=== PATIENT | male | born 1970 | race Caucasian/White ===

== ENCOUNTER 2021-08-14 22:41 | Emergency (ER) | payer OTHER ==
[2021-08-14 22:57] VITALS: BMI 32.1
[2021-08-14] MEDS ORDERED: ACETAMINOPHEN 325 MG TABLET (FP) PO ONE (23:41)
[2021-08-14] MEDS ORDERED: ACETAMINOPHEN 325 MG TABLET (FP) ONE (23:50)
[2021-08-15 00:45] LABS: HEMATOCRIT 46.8 % (35.4-49); RBC 5.15 M/mm3 (4.00-5.60)
[2021-08-15 00:46] LABS: BASO % 1.6 % (0-2.0); EOS % 5.9 % (0-4.5); LYMPH % 51.9 % (8-40); MCHC 34.1 g/dl (32.0-35.9); MEAN CELL VOLUME 90.9 fl (80-96); MONO % 9.9 % (3.8-10.2); NEUT % 30.7 % (42.8-82.8); PLATELET COUNT 226 10^3/uL (134-434)
[2021-08-15 00:52] LABS: URINE APPEARANCE CLEAR; URINE BILIRUBIN NEGATIVE (NEGATIVE); URINE COLOR YELLOW; URINE GLUCOSE (UA) NEGATIVE (NEGATIVE); URINE KETONE NEGATIVE (NEGATIVE)
[2021-08-15 00:53] LABS: URINE LEUK ESTERASE NEGATIVE (NEGATIVE); URINE NITRITE NEGATIVE (NEGATIVE); URINE PROTEIN NEGATIVE (NEGATIVE)
[2021-08-15 01:05] LABS: BLOOD UREA NITROGEN 20.9 mg/dL (7-18); CREATININE 1.1 mg/dL (0.55-1.3)
[2021-08-15 01:07] LABS: ALBUMIN 3.8 g/dl (3.4-5.0); BILIRUBIN,TOTAL 0.5 mg/dL (0.2-1); CALCIUM 9.4 mg/dL (8.5-10.1)
[2021-08-15 07:18] VITALS: BP 135/85; PULSE 65; TEMP 97.8
== END 2021-08-15 10:33 | disposition home or self-care (01) ==
LOC: JER 22:41
DX: R33.9 Retention of urine, unspecified (principal); I10 Essential (primary) hypertension; G47.00 Insomnia, unspecified
CPT/HCPCS: 36415; 72131-TC; 72148-TC; 74177-TC; 76775-TC; 80053; 81003; 85025; 87086; 93005; 93010; 99285-25; Q9967

== ENCOUNTER 2023-04-20 15:07 | Emergency (ER) | payer OTHER ==
[2023-04-20 15:20] VITALS: BP 128/92; PULSE 90; RESP 17; TEMP 97.8; BMI 33.6
== END 2023-04-20 17:04 | disposition home or self-care (01) ==
LOC: JERFT 15:07
PROC: 0X940ZZ Drainage of Right Axilla, Open Approach (ICD-10-PCS; principal; 2023-04-20)
DX: L02.411 Cutaneous abscess of right axilla (principal); M79.641 Pain in right hand; R50.9 Fever, unspecified
CPT/HCPCS: 10060; 99284-25

== ENCOUNTER 2023-06-24 14:59 | Emergency (ER) | payer OTHER ==
[2023-06-24 15:05] VITALS: BP 135/83; PULSE 85; RESP 18; TEMP 97.9; BMI 34.9
== END 2023-06-24 15:40 | disposition home or self-care (01) ==
LOC: JERFT 14:59
DX: H92.02 Otalgia, left ear (principal); H61.22 Impacted cerumen, left ear
CPT/HCPCS: 99282-25